=== PATIENT | female | born 1995 | race Two or more races ===

== ENCOUNTER 2023-07-22 12:05 | Emergency (ER) | payer OTHER ==
[~2023-07-22] VITALS: Ht 139.7 cm; Wt 47.2 kg
[2023-07-22] MEDS ORDERED: FAMOtidine 10 MG/ML (4ML VIAL) IV STA (13:20)
[2023-07-22] MEDS ORDERED: 0.9 % SODIUM CHLORIDE 1,000 ML IV STA (13:23)
[2023-07-22] MEDS ORDERED: ONDANSETRON HCL 2 MG/ML VIAL IV ONE (13:30)
[2023-07-22 14:24] LABS: HEMATOCRIT 35.6 % (36.0-45.00); HEMOGLOBIN 11.9 g/dL (12.0-15.00); MEAN CELL VOLUME 88.8 fL (80.00-100.00); MEAN CORPUSCULAR HEMOGLOBIN 29.6 pg (27.00-32.0); MEAN CORPUSCULAR HGB CONC 33.3 g/dl (32.0-36.0); PLATELET COUNT 176 K/uL (150-450); RED BLOOD COUNT 4.01 M/uL (4.00-6.00); RED CELL DISTRIBUTION WIDTH 13.6 % (11.5-14.5)
[2023-07-22 14:42] LABS: CALCIUM 8.7 mg/dL (8.5-10.1); CREATININE SERUM 0.79 mg/dL (0.55-1.02); GFR 88.67; POTASSIUM 3.28 mEq/L (3.5-5.1)
[2023-07-22 15:05] LABS: PH,URINE 5.5 (5.0-8.0); URINE APPEARANCE Clear; URINE BILIRRUBIN Negative (NEGATIVE); URINE BLOOD Large; URINE COLOR Dark Yellow; URINE GLUCOSE Negative (NEGATIVE); URINE LEUKOCYTE Small; URINE NITRATE Negative; URINE PROTEIN 30 (NEGATIVE)
[2023-07-22 15:09] LABS: URINE BACTERIA 251.9 uL (0.0-1933); URINE EPITHELIAL CELLS 17.1 uL (0.0-38.8); URINE RBC 1474.6 uL (0.0-20.8); URINE WBC 50.9 uL (0.0-23.2)
[2023-07-22] MEDS ORDERED: CIPRO500 MG PO (17:03)
[2023-07-22] MEDS ORDERED: PEPCID AC20 MG PO (17:03)
[2023-07-22] MEDS ORDERED: ZOFRAN8 MG PO (17:04)
[2023-07-22] MEDS ORDERED: DIPHENOXYLATE HCL/ATROPINE 1 UDTAB TABLET PO ONE (17:15)
== END 2023-07-22 17:22 | disposition home or self-care (01) ==
LOC: ER 12:06
PROVIDERS: General Practice
DX: R19.7 Diarrhea, unspecified (principal)